=== PATIENT | female | born 1935 | race African-American/Black ===

== ENCOUNTER 2018-08-04 18:01 | Emergency (ER) | payer MEDICAID, MEDICARE ==
[~2018-08-04] VITALS: Ht 165.1 cm; Wt 84.0 kg
[~2018-08-04 18:01] MED LIST: APIX2.5T PO; DIGO250T4 PO; DILT240C3 PO; LORA0.5T2 PO; SEVE800T8 PO; ZOLP5TAB8 PO
[2018-08-04 18:45] LABS: BASOPHILS % 0.8 % (0.0-2.0); CHLORIDE 97 mEq/L (98-107); EOSINOPHILS % 4.6 % (0.0-5.0); HEMATOCRIT. 36.2 % (36.0-48.0); HEMOGLOBIN. 12.5 g/dL (12.0-16.0); LYMPHOCYTES % 29.7 % (20.0-50.0); MEAN CORPUSCULAR HEMOGLOBIN 29.8 pg (28.0-32.0); MEAN CORPUSCULAR VOLUME 86.5 fL (81.0-99.0); MEAN PLATELET VOLUME 8.6 fl (7.4-10.4); MONOCYTES % 11.6 % (2.0-8.0); NEUTROPHILS % 53.3 % (40.0-76.0); PLATELET 131 x1000/uL (130-400); RED BLOOD CELL COUNT 4.19 mill/uL (4.2-5.4); RED CELL DISTRIBUTION WIDTH 16.9 % (11.6-14.6)
[2018-08-04 18:48] LABS: INR 1.1; PROTHROMBIN TIME 11.4 sec (9.1-11.1)
[2018-08-04 21:09] VITALS: BP 178/77
== END 2018-08-04 21:09 | disposition home or self-care (01) ==
LOC: ER 18:01
DX: I12.0 Hypertensive chronic kidney disease with stage 5 chronic kidney disease or end stage renal disease (principal); N18.6 End stage renal disease; Z99.2 Dependence on renal dialysis; Z79.899 Other long term (current) drug therapy
CPT/HCPCS: 36415; 71045; 80053; 83880; 84484; 85025; 85610; 93005; 99285

== ENCOUNTER 2018-08-07 15:29 | Inpatient (IN) | payer MEDICARE, MEDICAID ==
[~2018-08-07] VITALS: Ht 121.9 cm; Wt 62.8 kg
[2018-08-07] MEDS ORDERED: CLON1PAT11 TD (15:40)
[2018-08-07] MEDS ORDERED: CLONIDINE 0.3MG TABLET PO ONE (18:45)
[2018-08-07] MEDS ORDERED: ACETAMINOPHEN 325MG TABLET PO ONE ×2 (18:45→20:30)
[2018-08-07 19:12] LABS: BASOPHILS % 0.9 % (0.0-2.0); EOSINOPHILS % 7.5 % (0.0-5.0); HEMATOCRIT. 33.8 % (36.0-48.0); HEMOGLOBIN. 11.5 g/dL (12.0-16.0); LYMPHOCYTES % 38.7 % (20.0-50.0); MEAN CORPUSCULAR HEMOGLOBIN 29.6 pg (28.0-32.0); MEAN CORPUSCULAR VOLUME 86.9 fL (81.0-99.0); MEAN PLATELET VOLUME 8.2 fl (7.4-10.4); MONOCYTES % 11.7 % (2.0-8.0); NEUTROPHILS % 41.2 % (40.0-76.0); PLATELET 168 x1000/uL (130-400); RED BLOOD CELL COUNT 3.89 mill/uL (4.2-5.4); RED CELL DISTRIBUTION WIDTH 16.5 % (11.6-14.6)
[2018-08-07 19:16] LABS: CHLORIDE 98 mEq/L (98-107)
[2018-08-07 19:39] LABS: DIGOXIN < 0.1 ng/mL (0.9-2.0)
[2018-08-07] MEDS ORDERED: HYDRALAZINE 20MG/ML VIAL IV ONE ×2 (20:15→21:00)
[2018-08-07] MEDS ORDERED: MORPHINE SULFATE 2 MG/ML CPJ (NOT FOR IM USE) IV ONE (20:15)
[2018-08-07] MEDS ORDERED: SODIUM CHLORIDE 0.9% 1000ML BAG (SEPSIS BOLUS) IV ONE (21:15)
[2018-08-07] MEDS ORDERED: LEVOFLOXACIN 750MG PREMIX 150 ML IV ONE (21:15)
[2018-08-07] MEDS ORDERED: NITROGLYCERIN 50MG PREMIX 250 ML IV ONE (21:15)
[2018-08-08] VITALS (80 sets, daily range): BP systolic 133–222; BP diastolic 60–134
[2018-08-08] MEDS ORDERED: CLONIDINE 0.2MG TABLET PO PRN (02:30)
[2018-08-08] MEDS: ZOLPIDEM TARTRATE 5MG TABLET PO PRN (03:08)
[2018-08-08 05:33] LABS: BASOPHILS % 1.1 % (0.0-2.0); EOSINOPHILS % 7.6 % (0.0-5.0); HEMOGLOBIN. 10.7 g/dL (12.0-16.0); LYMPHOCYTES % 32.9 % (20.0-50.0); MEAN CORPUSCULAR HEMOGLOBIN 29.9 pg (28.0-32.0); MEAN CORPUSCULAR VOLUME 86.9 fL (81.0-99.0); MEAN PLATELET VOLUME 8.4 fl (7.4-10.4); MONOCYTES % 12.4 % (2.0-8.0); PLATELET 157 x1000/uL (130-400); RED BLOOD CELL COUNT 3.57 mill/uL (4.2-5.4)
[2018-08-08] MEDS: NITROGLYCERIN 50MG PREMIX 250 ML IV PRN ×2 (06:22→14:14)
[2018-08-08] MEDS: SEVELAMER CARBONATE 800 MG TABLET PO SCH ×3 (08:20→18:20)
[2018-08-08] MEDS ORDERED: LISINOPRIL 20MG TABLET PO SCH (09:00)
[2018-08-08] MEDS: FOLIC ACID/VITAMIN B COMP W-C TABLET PO SCH (09:00)
[2018-08-08] MEDS ORDERED: HYDRALAZINE 20MG/ML VIAL IV PRN (09:00)
[2018-08-08] MEDS: APIXABAN 2.5 MG TABLET PO SCH ×2 (09:00→18:32)
[2018-08-08] MEDS ORDERED: LIDOCAINE HCL 1% 10 MG/ML 10ML VIAL ONE (09:12)
[2018-08-08] MEDS: CETIRIZINE 10MG TABLET PO SCH (13:22)
[2018-08-08] MEDS: DILTIAZEM HCL 240MG ER (24HR) PO SCH (13:22)
[2018-08-08] MEDS: HYDRALAZINE HCL 50MG TABLET PO SCH ×2 (13:22→21:04)
[2018-08-08] MEDS ORDERED: CLONIDINE 0.1MG TABLET PO SCH (14:00)
[2018-08-08] MEDS: LISINOPRIL 40MG TABLET PO SCH (14:11)
[2018-08-08] MEDS: CLONIDINE 0.2MG TABLET PO SCH ×2 (14:11→22:18)
[2018-08-08] MEDS: METOPROLOL TARTRATE 50MG TABLET PO SCH ×2 (14:12→21:05)
[2018-08-08] MEDS ORDERED: DIGOXIN 125MCG TABLET PO SCH (18:00)
[2018-08-08] MEDS: IPRATROPIUM/ALBUTEROL 0.5-3(2.5)MG/3ML NEB HHN SCH (20:38)
[2018-08-09] VITALS (77 sets, daily range): BP systolic 107–174; BP diastolic 51–83
[2018-08-09] MEDS: ZOLPIDEM TARTRATE 5MG TABLET PO PRN ×2 (02:13→22:16)
[2018-08-09] MEDS: IPRATROPIUM/ALBUTEROL 0.5-3(2.5)MG/3ML NEB HHN SCH ×3 (04:00→08:04)
[2018-08-09] MEDS: CLONIDINE 0.2MG TABLET PO SCH ×2 (05:39→14:07)
[2018-08-09] MEDS: NITROGLYCERIN 50MG PREMIX 250 ML IV PRN (06:51)
[2018-08-09 07:52] LABS: BASOPHILS % 0.9 % (0.0-2.0); EOSINOPHILS % 3.5 % (0.0-5.0); HEMATOCRIT. 30.4 % (36.0-48.0); HEMOGLOBIN. 10.5 g/dL (12.0-16.0); LYMPHOCYTES % 29.7 % (20.0-50.0); MEAN CORPUSCULAR HEMOGLOBIN 30.3 pg (28.0-32.0); MEAN CORPUSCULAR VOLUME 87.8 fL (81.0-99.0); MEAN PLATELET VOLUME 8.5 fl (7.4-10.4); MONOCYTES % 13.4 % (2.0-8.0); NEUTROPHILS % 52.5 % (40.0-76.0); PLATELET 170 x1000/uL (130-400); RED BLOOD CELL COUNT 3.46 mill/uL (4.2-5.4); RED CELL DISTRIBUTION WIDTH 17.3 % (11.6-14.6)
[2018-08-09] MEDS: SEVELAMER CARBONATE 800 MG TABLET PO SCH ×3 (08:20→17:11)
[2018-08-09] MEDS: FOLIC ACID/VITAMIN B COMP W-C TABLET PO SCH (08:25)
[2018-08-09] MEDS: APIXABAN 2.5 MG TABLET PO SCH ×2 (08:26→17:11)
[2018-08-09] MEDS: DILTIAZEM HCL 240MG ER (24HR) PO SCH (08:26)
[2018-08-09] MEDS: HYDRALAZINE HCL 50MG TABLET PO SCH (08:26)
[2018-08-09] MEDS: CETIRIZINE 10MG TABLET PO SCH (08:26)
[2018-08-09] MEDS: LISINOPRIL 40MG TABLET PO SCH (09:39)
[2018-08-09] MEDS: METOPROLOL TARTRATE 50MG TABLET PO SCH ×2 (09:40→21:24)
[2018-08-09] MEDS: TRAMADOL 50MG TABLET PO PRN ×2 (13:31→21:27)
[2018-08-09] MEDS ORDERED: HYDRALAZINE HCL 50MG TABLET PO SCH (17:00)
[2018-08-09] MEDS: HYDRALAZINE HCL 100MG TABLET PO SCH (17:11)
[2018-08-09] MEDS ORDERED: MORPHINE SULFATE 4 MG/ML CPJ (NOT FOR IM USE) IV PRN (19:00)
[2018-08-09] MEDS ORDERED: DILTIAZEM HCL 180MG CAPSULE CD 24HR PO SCH (21:00)
[2018-08-09] MEDS: CLONIDINE 0.3MG TABLET PO SCH (22:16)
[2018-08-10] VITALS (53 sets, daily range): BP systolic 80–186; BP diastolic 45–92
[2018-08-10] MEDS: CLONIDINE 0.3MG TABLET PO SCH ×3 (05:52→21:20)
[2018-08-10 06:24] LABS: BASOPHILS % 0.4 % (0.0-2.0); EOSINOPHILS % 5.5 % (0.0-5.0); HEMATOCRIT. 30.3 % (36.0-48.0); HEMOGLOBIN. 10.4 g/dL (12.0-16.0); LYMPHOCYTES % 31.1 % (20.0-50.0); MEAN CORPUSCULAR HEMOGLOBIN 30.1 pg (28.0-32.0); MEAN CORPUSCULAR VOLUME 87.9 fL (81.0-99.0); MEAN PLATELET VOLUME 8.5 fl (7.4-10.4); MONOCYTES % 11.6 % (2.0-8.0); NEUTROPHILS % 51.4 % (40.0-76.0); PLATELET 173 x1000/uL (130-400); RED BLOOD CELL COUNT 3.44 mill/uL (4.2-5.4); RED CELL DISTRIBUTION WIDTH 17.5 % (11.6-14.6)
[2018-08-10] MEDS: IPRATROPIUM/ALBUTEROL 0.5-3(2.5)MG/3ML NEB HHN PRN (07:12)
[2018-08-10] MEDS: SEVELAMER CARBONATE 800 MG TABLET PO SCH ×4 (08:20→17:44)
[2018-08-10] MEDS ORDERED: ONDANSETRON HCL 4MG/2ML INJ IV PRN (09:00)
[2018-08-10] MEDS: APIXABAN 2.5 MG TABLET PO SCH ×2 (09:33→17:43)
[2018-08-10] MEDS: CETIRIZINE 10MG TABLET PO SCH (09:33)
[2018-08-10] MEDS: LISINOPRIL 40MG TABLET PO SCH (09:34)
[2018-08-10] MEDS: DILTIAZEM HCL 240MG ER (24HR) PO SCH (09:34)
[2018-08-10] MEDS: METOPROLOL TARTRATE 50MG TABLET PO SCH ×2 (09:34→21:19)
[2018-08-10] MEDS: FOLIC ACID/VITAMIN B COMP W-C TABLET PO SCH (09:34)
[2018-08-10] MEDS: HYDRALAZINE HCL 100MG TABLET PO SCH ×3 (09:35→17:44)
[2018-08-10] MEDS: TRAMADOL 50MG TABLET PO PRN (17:43)
[2018-08-11] VITALS: BP 131/54
[2018-08-11 04:00] VITALS: BP 138/63
[2018-08-11] MEDS: IPRATROPIUM/ALBUTEROL 0.5-3(2.5)MG/3ML NEB HHN PRN (04:30)
[2018-08-11] MEDS: CLONIDINE 0.3MG TABLET PO SCH ×2 (06:10→17:35)
[2018-08-11] MEDS: TRAMADOL 50MG TABLET PO PRN (06:10)
[2018-08-11 07:30] LABS: BASOPHILS % 0.8 % (0.0-2.0); EOSINOPHILS % 3.8 % (0.0-5.0); HEMOGLOBIN. 11.5 g/dL (12.0-16.0); LYMPHOCYTES % 31.9 % (20.0-50.0); MEAN CORPUSCULAR HEMOGLOBIN 30.5 pg (28.0-32.0); MEAN CORPUSCULAR VOLUME 87.8 fL (81.0-99.0); MEAN PLATELET VOLUME 8.2 fl (7.4-10.4); MONOCYTES % 14.7 % (2.0-8.0); NEUTROPHILS % 48.8 % (40.0-76.0); PLATELET 164 x1000/uL (130-400); RED BLOOD CELL COUNT 3.77 mill/uL (4.2-5.4); RED CELL DISTRIBUTION WIDTH 17.9 % (11.6-14.6)
[2018-08-11 08:00] VITALS: BP 157/64
[2018-08-11] MEDS: SEVELAMER CARBONATE 800 MG TABLET PO SCH ×3 (08:10→17:04)
[2018-08-11] MEDS: LISINOPRIL 40MG TABLET PO SCH (08:20)
[2018-08-11] MEDS: APIXABAN 2.5 MG TABLET PO SCH ×2 (08:20→17:35)
[2018-08-11] MEDS: CETIRIZINE 10MG TABLET PO SCH (08:20)
[2018-08-11] MEDS: FOLIC ACID/VITAMIN B COMP W-C TABLET PO SCH (08:20)
[2018-08-11] MEDS: METOPROLOL TARTRATE 50MG TABLET PO SCH (08:24)
[2018-08-11] MEDS: DILTIAZEM HCL 240MG ER (24HR) PO SCH (08:25)
[2018-08-11] MEDS: HYDRALAZINE HCL 100MG TABLET PO SCH ×3 (08:27→17:37)
[2018-08-11 12:00] VITALS: BP 148/65
[2018-08-11 16:00] VITALS: BP 129/64
[2018-08-11 16:10] VITALS: BP 157/64
== END 2018-08-11 19:07 | disposition home or self-care (01) | DRG 199 ==
LOC: ER 16:17 → CVICU 17:17 → EDBEDREQ 08-08 00:30 → ENRESERV 08-08 00:34 → 7WST 08-10 16:01
PROVIDERS: ADMIT Internal Medicine; ATTEND Internal Medicine
PROC: B54MZZA Ultrasonography of Right Upper Extremity Veins, Guidance (ICD-10-PCS; principal; 2018-08-08)
PROC: 05HY33Z Insertion of Infusion Device into Upper Vein, Percutaneous Approach (ICD-10-PCS; 2018-08-08)
PROC: 5A1D70Z Performance of Urinary Filtration, Intermittent, Less than 6 Hours Per Day (ICD-10-PCS; 2018-08-08)
PROC: 5A1D70Z Performance of Urinary Filtration, Intermittent, Less than 6 Hours Per Day (ICD-10-PCS; 2018-08-10)
DX: I16.0 Hypertensive urgency (principal); I50.33 Acute on chronic diastolic (congestive) heart failure; N18.6 End stage renal disease; I48.91 Unspecified atrial fibrillation; E87.1 Hypo-osmolality and hyponatremia; D63.8 Anemia in other chronic diseases classified elsewhere; I13.2 Hypertensive heart and chronic kidney disease with heart failure and with stage 5 chronic kidney disease, or end stage renal disease; I16.1 Hypertensive emergency; I25.10 Atherosclerotic heart disease of native coronary artery without angina pectoris; Z79.01 Long term (current) use of anticoagulants; Z99.2 Dependence on renal dialysis; Z95.0 Presence of cardiac pacemaker; Z79.899 Other long term (current) drug therapy
CPT/HCPCS: 36415; 36569; 70450; 71045; 76937; 80048; 80061; 80162; 82040; 83605; 83880; 84443; 84484; 85025; 87040; 93005; 93306; 93970; 94640; 96365; 96375; 97116; 97162; 97530; 99291; C1725; C1769; J0360; J1956; J2270; J2405; J3490; J7030; J7620

== ENCOUNTER 2018-08-16 18:20 | Inpatient (IN) | payer MEDICARE, MEDICAID ==
[~2018-08-16] VITALS: Ht 167.6 cm; Wt 73.9 kg
[2018-08-16] MEDS ORDERED: MORPHINE SULFATE 4 MG/ML CPJ (NOT FOR IM USE) IV STA (18:53)
[2018-08-16] MEDS ORDERED: ONDANSETRON HCL 4MG/2ML INJ IV STA (18:53)
[2018-08-16] MEDS ORDERED: CLONIDINE 0.2MG TABLET PO ONE (19:00)
[2018-08-16] MEDS ORDERED: NITROGLYCERIN OINT 1GM/INCH UDPKT TD ONE (19:00)
[2018-08-16 19:35] LABS: BASOPHILS % 0.6 % (0.0-2.0); EOSINOPHILS % 3.1 % (0.0-5.0); HEMATOCRIT. 37.4 % (36.0-48.0); HEMOGLOBIN. 12.6 g/dL (12.0-16.0); LYMPHOCYTES % 29.6 % (20.0-50.0); MEAN CORPUSCULAR HEMOGLOBIN 28.8 pg (28.0-32.0); MEAN CORPUSCULAR VOLUME 85.8 fL (81.0-99.0); MEAN PLATELET VOLUME 8.6 fl (7.4-10.4); MONOCYTES % 11.6 % (2.0-8.0); NEUTROPHILS % 55.1 % (40.0-76.0); PLATELET 255 x1000/uL (130-400); RED BLOOD CELL COUNT 4.35 mill/uL (4.2-5.4); RED CELL DISTRIBUTION WIDTH 17.8 % (11.6-14.6)
[2018-08-16 19:40] LABS: CHLORIDE 94 mEq/L (98-107)
[2018-08-16 19:44] LABS: ETHANOL BLOOD < 10 mg/dL; INR 1.1; PARTIAL THROMBOPLASTIN TIME 37.5 sec (23.4-31.0); PROTHROMBIN TIME 11.4 sec (9.1-11.1)
[2018-08-16] MEDS ORDERED: ONDANSETRON 4MG ODT PO ONE (20:00)
[2018-08-16] MEDS ORDERED: MORPHINE SULFATE 10 MG/ML CPJ IM ONE (20:00)
[2018-08-16] MEDS ORDERED: NITROGLYCERIN 0.4MG TABLET SL SL PRN (22:00)
[2018-08-16] MEDS ORDERED: MAGNESIUM/ALUMINUM HYDROXIDE/SIMETHICONE 30ML UDC PO PRN (22:00)
[2018-08-16] MEDS ORDERED: NA PHOS,M-B/NA PHOS,DI-BA ENEMA 118ML PR PRN (22:00)
[2018-08-16] MEDS ORDERED: TRAMADOL 50MG TABLET PO PRN (22:00)
[2018-08-16] MEDS ORDERED: GUAIFENESIN 200MG/10ML SUGAR FREE UDC PO PRN (22:00)
[2018-08-16] MEDS ORDERED: ACETAMINOPHEN 325MG TABLET PO PRN (22:00)
[2018-08-16] MEDS ORDERED: ONDANSETRON HCL 4MG/2ML INJ IV PRN (22:00)
[2018-08-16] MEDS ORDERED: DIPHENHYDRAMINE 50MG/ML VIAL IV PRN (22:00)
[2018-08-16] MEDS ORDERED: DOCUSATE SODIUM 100MG CAPSULE PO PRN (22:00)
[2018-08-16] MEDS ORDERED: LORAZEPAM 0.5MG TABLET PO PRN (22:00)
[2018-08-16 22:34] LABS: LDL CHOLESTEROL 72 mg/dL (5-100)
[2018-08-16 22:35] LABS: HDL CHOLESTEROL 58 mg/dL (40-59)
[2018-08-16] MEDS: CLONIDINE 0.1MG TABLET PO PRN (22:35)
[2018-08-16 23:07] LABS: DIGOXIN < 0.1 ng/mL (0.9-2.0)
[2018-08-17] VITALS (8 sets, daily range): BP systolic 135–213; BP diastolic 50–89
[2018-08-17 01:21] LABS: CREATINE KINASE 67 IU/L (26-192); CREATINE KINASE MB FRACTION 1.6 ng/mL (0.5-3.6)
[2018-08-17] MEDS: ZOLPIDEM TARTRATE 5MG TABLET PO PRN (02:17)
[2018-08-17] MEDS: CLONIDINE 0.1MG TABLET PO PRN (02:34)
[2018-08-17] MEDS: HYDRALAZINE HCL 50MG TABLET PO SCH ×3 (05:36→22:03)
[2018-08-17] MEDS: SEVELAMER CARBONATE 800 MG TABLET PO SCH ×3 (08:04→17:42)
[2018-08-17] MEDS: FOLIC ACID/VITAMIN B COMP W-C TABLET PO SCH (08:05)
[2018-08-17] MEDS: ASPIRIN 325MG EC TABLET PO SCH (08:05)
[2018-08-17] MEDS: AMLODIPINE 10MG TABLET PO SCH (08:07)
[2018-08-17] MEDS: METOPROLOL TARTRATE 25MG TABLET PO SCH ×2 (08:07→20:45)
[2018-08-17] MEDS: APIXABAN 2.5 MG TABLET PO SCH ×2 (08:08→20:45)
[2018-08-17] MEDS ORDERED: LIDOCAINE HCL 1% 20ML VIAL (Pyxis) INJ ONE (08:54)
[2018-08-17 14:03] LABS: CREATINE KINASE 59 IU/L (26-192)
[2018-08-17 14:04] LABS: CREATINE KINASE MB FRACTION 1.8 ng/mL (0.5-3.6)
[2018-08-17] MEDS: IPRATROPIUM/ALBUTEROL 0.5-3(2.5)MG/3ML NEB INH PRN (20:26)
[2018-08-18] VITALS (7 sets, daily range): BP systolic 104–163; BP diastolic 53–69
[2018-08-18] MEDS: IPRATROPIUM/ALBUTEROL 0.5-3(2.5)MG/3ML NEB INH PRN ×5 (01:34→15:41)
[2018-08-18] MEDS: HYDRALAZINE HCL 50MG TABLET PO SCH ×3 (06:19→21:25)
[2018-08-18 07:15] LABS: HEMATOCRIT. 29.8 % (36.0-48.0); HEMOGLOBIN. 10.3 g/dL (12.0-16.0); MEAN CORPUSCULAR HEMOGLOBIN 29.7 pg (28.0-32.0); MEAN CORPUSCULAR VOLUME 85.5 fL (81.0-99.0); MEAN PLATELET VOLUME 8.8 fl (7.4-10.4); PLATELET 231 x1000/uL (130-400); RED BLOOD CELL COUNT 3.48 mill/uL (4.2-5.4); RED CELL DISTRIBUTION WIDTH 17.3 % (11.6-14.6)
[2018-08-18] MEDS: SEVELAMER CARBONATE 800 MG TABLET PO SCH ×3 (08:55→18:09)
[2018-08-18] MEDS: FOLIC ACID/VITAMIN B COMP W-C TABLET PO SCH (08:55)
[2018-08-18] MEDS: ASPIRIN 325MG EC TABLET PO SCH ×2 (08:55→08:58)
[2018-08-18] MEDS: APIXABAN 2.5 MG TABLET PO SCH (08:56)
[2018-08-18] MEDS: AMLODIPINE 10MG TABLET PO SCH ×2 (08:58→12:13)
[2018-08-18] MEDS: METOPROLOL TARTRATE 25MG TABLET PO SCH ×2 (08:58→21:25)
[2018-08-18 12:04] LABS: PLATELET ESTIMATE NORMAL
[2018-08-18] MEDS: LOSARTAN POTASSIUM 50 MG TABLET PO SCH ×2 (15:44→21:24)
[2018-08-18] MEDS: CLONIDINE 0.1MG TABLET PO PRN (15:45)
[2018-08-18] MEDS ORDERED: AMLODIPINE 5MG TABLET PO SCH (21:00)
[2018-08-18] MEDS: ZOLPIDEM TARTRATE 5MG TABLET PO PRN (21:38)
[2018-08-19] VITALS: BP 145/55
[2018-08-19] MEDS: IPRATROPIUM/ALBUTEROL 0.5-3(2.5)MG/3ML NEB INH PRN ×4 (02:36→21:11)
[2018-08-19 04:00] VITALS: BP_SYST 151; BP_SYST 169; BP_DIAS 62; BP_DIAS 67
[2018-08-19] MEDS: HYDRALAZINE HCL 50MG TABLET PO SCH (06:19)
[2018-08-19 08:00] VITALS: BP 168/69
[2018-08-19] MEDS: AMLODIPINE 10MG TABLET PO SCH (08:31)
[2018-08-19] MEDS: SEVELAMER CARBONATE 800 MG TABLET PO SCH ×3 (08:31→17:57)
[2018-08-19] MEDS: LOSARTAN POTASSIUM 50 MG TABLET PO SCH (08:31)
[2018-08-19] MEDS: ASPIRIN 325MG EC TABLET PO SCH (08:32)
[2018-08-19] MEDS: FOLIC ACID/VITAMIN B COMP W-C TABLET PO SCH (08:32)
[2018-08-19] MEDS: METOPROLOL TARTRATE 25MG TABLET PO SCH (08:32)
[2018-08-19 12:00] VITALS: BP 166/65
[2018-08-19] MEDS ORDERED: ASPIRIN 325MG EC TABLET PO SCH (13:30)
[2018-08-19] MEDS ORDERED: CLON0.3T PO (13:46)
[2018-08-19] MEDS ORDERED: METO-539 MT (13:46)
[2018-08-19] MEDS ORDERED: LISI40TA4 MT (13:46)
[2018-08-19] MEDS ORDERED: HYDR100T26 MT (13:46)
[2018-08-19] MEDS ORDERED: ASPIRIN 81MG EC TABLET PO SCH (13:47)
[2018-08-19] MEDS: HYDRALAZINE HCL 100MG TABLET PO SCH ×2 (13:53→22:57)
[2018-08-19] MEDS: CLONIDINE 0.1MG TABLET PO SCH ×2 (13:54→21:26)
[2018-08-19] MEDS ORDERED: DILTIAZEM HCL 60MG TABLET PO SCH (14:00)
[2018-08-19 16:00] VITALS: BP 169/60
[2018-08-19] MEDS: APIXABAN 2.5 MG TABLET PO SCH ×2 (17:00→17:57)
[2018-08-19 20:00] VITALS: BP 158/55
[2018-08-19] MEDS: METOPROLOL TARTRATE 50MG TABLET PO SCH (21:25)
[2018-08-19] MEDS: LISINOPRIL 20MG TABLET PO SCH (21:26)
[2018-08-20] VITALS: BP 158/55
[2018-08-20] MEDS: IPRATROPIUM/ALBUTEROL 0.5-3(2.5)MG/3ML NEB INH PRN ×4 (01:37→20:27)
[2018-08-20 04:00] VITALS: BP 173/73
[2018-08-20] MEDS: CLONIDINE 0.1MG TABLET PO SCH ×3 (06:47→23:06)
[2018-08-20] MEDS: HYDRALAZINE HCL 100MG TABLET PO SCH ×3 (06:47→23:06)
[2018-08-20] MEDS: METOPROLOL TARTRATE 50MG TABLET PO SCH ×2 (09:00→21:45)
[2018-08-20] MEDS: AMLODIPINE 10MG TABLET PO SCH (09:00)
[2018-08-20 09:36] LABS: BASOPHILS % 0.9 % (0.0-2.0); EOSINOPHILS % 13.6 % (0.0-5.0); HEMATOCRIT. 32.1 % (36.0-48.0); HEMOGLOBIN. 10.8 g/dL (12.0-16.0); LYMPHOCYTES % 33.5 % (20.0-50.0); MEAN CORPUSCULAR HEMOGLOBIN 29.2 pg (28.0-32.0); MEAN CORPUSCULAR VOLUME 86.6 fL (81.0-99.0); MEAN PLATELET VOLUME 8.6 fl (7.4-10.4); MONOCYTES % 12.1 % (2.0-8.0); NEUTROPHILS % 39.9 % (40.0-76.0); PLATELET 259 x1000/uL (130-400); RED CELL DISTRIBUTION WIDTH 17.8 % (11.6-14.6)
[2018-08-20] MEDS: FOLIC ACID/VITAMIN B COMP W-C TABLET PO SCH (10:36)
[2018-08-20] MEDS: ASPIRIN 81MG EC TABLET PO SCH (10:37)
[2018-08-20] MEDS: SEVELAMER CARBONATE 800 MG TABLET PO SCH ×4 (10:37→18:59)
[2018-08-20] MEDS: LISINOPRIL 20MG TABLET PO SCH ×2 (10:39→21:46)
[2018-08-20] MEDS: APIXABAN 2.5 MG TABLET PO SCH ×2 (11:44→18:46)
[2018-08-20 12:00] VITALS: BP 150/61
[2018-08-20] MEDS ORDERED: LACTULOSE 20G/30ML UDC PO NR (12:00)
[2018-08-20 16:00] VITALS: BP 130/70
[2018-08-20 20:00] VITALS: BP 119/65
[2018-08-20] MEDS: ZOLPIDEM TARTRATE 5MG TABLET PO PRN (21:45)
[2018-08-21] VITALS: BP 155/55
[2018-08-21] MEDS: IPRATROPIUM/ALBUTEROL 0.5-3(2.5)MG/3ML NEB INH PRN ×4 (00:02→13:24)
[2018-08-21 04:00] VITALS: BP_SYST 169; BP_DIAS 60; BP_DIAS 90
[2018-08-21] MEDS: CLONIDINE 0.1MG TABLET PO SCH (06:17)
[2018-08-21] MEDS: HYDRALAZINE HCL 100MG TABLET PO SCH ×2 (06:18→15:03)
[2018-08-21 08:09] VITALS: BP 164/66
[2018-08-21] MEDS: METOPROLOL TARTRATE 50MG TABLET PO SCH (09:00)
[2018-08-21] MEDS: APIXABAN 2.5 MG TABLET PO SCH (09:00)
[2018-08-21] MEDS: LISINOPRIL 20MG TABLET PO SCH (09:00)
[2018-08-21] MEDS: ASPIRIN 81MG EC TABLET PO SCH (09:00)
[2018-08-21] MEDS: AMLODIPINE 10MG TABLET PO SCH (09:00)
[2018-08-21] MEDS: FOLIC ACID/VITAMIN B COMP W-C TABLET PO SCH (09:20)
[2018-08-21 12:04] VITALS: BP 136/57
[2018-08-21 12:15] VITALS: BP 136/57
[2018-08-21] MEDS: SEVELAMER CARBONATE 800 MG TABLET PO SCH (13:27)
[2018-08-21] MEDS ORDERED: CLONIDINE 0.2MG TABLET PO SCH (14:00)
[2018-08-21] MEDS ORDERED: CLONIDINE 0.2MG TABLET PO PRN (15:00)
== END 2018-08-21 15:45 | disposition home or self-care (01) | DRG 133 ==
LOC: ER 18:20 → 6WST 21:28 → EDBEDREQ 21:34 → SUPCPDRO 21:50 → ENRESERV 22:47
PROVIDERS: ADMIT Internal Medicine; ATTEND Internal Medicine
PROC: 02HV33Z Insertion of Infusion Device into Superior Vena Cava, Percutaneous Approach (ICD-10-PCS; principal; 2018-08-17)
PROC: B5181ZA Fluoroscopy of Superior Vena Cava using Low Osmolar Contrast, Guidance (ICD-10-PCS; 2018-08-17)
PROC: B548ZZA Ultrasonography of Superior Vena Cava, Guidance (ICD-10-PCS; 2018-08-17)
PROC: 5A1D70Z Performance of Urinary Filtration, Intermittent, Less than 6 Hours Per Day (ICD-10-PCS; 2018-08-18)
PROC: 5A1D70Z Performance of Urinary Filtration, Intermittent, Less than 6 Hours Per Day (ICD-10-PCS; 2018-08-20)
PROC: 5A1D70Z Performance of Urinary Filtration, Intermittent, Less than 6 Hours Per Day (ICD-10-PCS; 2018-08-21)
DX: J96.00 Acute respiratory failure, unspecified whether with hypoxia or hypercapnia (principal); I13.2 Hypertensive heart and chronic kidney disease with heart failure and with stage 5 chronic kidney disease, or end stage renal disease; I48.0 Paroxysmal atrial fibrillation; I49.5 Sick sinus syndrome; N18.6 End stage renal disease; E87.1 Hypo-osmolality and hyponatremia; I50.33 Acute on chronic diastolic (congestive) heart failure; D63.1 Anemia in chronic kidney disease; I16.0 Hypertensive urgency; I25.10 Atherosclerotic heart disease of native coronary artery without angina pectoris; J45.909 Unspecified asthma, uncomplicated; Z99.2 Dependence on renal dialysis; Z79.01 Long term (current) use of anticoagulants; Z95.0 Presence of cardiac pacemaker; Z79.899 Other long term (current) drug therapy; Z82.49 Family history of ischemic heart disease and other diseases of the circulatory system
CPT/HCPCS: 36415; 36569; 70450; 71045; 71046; 76770; 76937; 77001; 80048; 80053; 80061; 80162; 82550; 82553; 82962; 83036; 83880; 84443; 84484; 85025; 85610; 85730; 93005; 93970; 94640; 96372; 97116; 97162; 97166; 97530; 99285; C1725; C1769; G0482; J2270; J2405; J3490; J7030; J7620; Q0162

== ENCOUNTER 2018-11-01 10:00 | Emergency (ER) | payer MEDICARE, MEDICAID ==
[~2018-11-01] VITALS: Ht 167.6 cm; Wt 66.5 kg
[~2018-11-01 10:00] MED LIST changes: +CLON0.3T PO; -DIGO250T4 PO; -DILT240C3 PO; +HYDR100T26 MT; +LISI40TA4 MT; +METO-539 MT
[2018-11-01] MEDS ORDERED: COLCHICINE 0.6MG TABLET PO ONE (12:30)
[2018-11-01 13:21] VITALS: BP 151/75
== END 2018-11-01 13:32 | disposition left against medical advice (07) ==
LOC: ER 10:00
DX: M10.9 Gout, unspecified (principal); I10 Essential (primary) hypertension; Z95.0 Presence of cardiac pacemaker; Z79.899 Other long term (current) drug therapy
CPT/HCPCS: 73030; 73110; 93971; 99284

== ENCOUNTER 2019-02-26 07:11 | Inpatient (IN) | payer MEDICARE, MEDICAID ==
[~2019-02-26] VITALS: Ht 167.6 cm; Wt 64.4 kg
[2019-02-26] MEDS ORDERED: HYDROCODONE/ACETAMINOPHEN 5/325MG TABLET PO STA (08:03)
[2019-02-26 08:49] LABS: BASOPHILS % 1.3 % (0.0-2.0); EOSINOPHILS % 7.2 % (0.0-5.0); HEMATOCRIT. 32.8 % (36.0-48.0); LYMPHOCYTES % 37.2 % (20.0-50.0); MEAN CORPUSCULAR HEMOGLOBIN 29.9 pg (28.0-32.0); MEAN CORPUSCULAR VOLUME 88.9 fL (81.0-99.0); MEAN PLATELET VOLUME 8.8 fl (7.4-10.4); MONOCYTES % 10.3 % (2.0-8.0); PLATELET 227 x1000/uL (130-400); RED BLOOD CELL COUNT 3.69 mill/uL (4.2-5.4); RED CELL DISTRIBUTION WIDTH 18.5 % (11.6-14.6)
[2019-02-26 08:52] LABS: CHLORIDE 99 mEq/L (98-107)
[2019-02-26] MEDS ORDERED: AMLO10TA80 PO (09:45)
[2019-02-26] MEDS ORDERED: DILT90TA2 PO (09:46)
[2019-02-26] MEDS ORDERED: ALLO100T PO (09:49)
[2019-02-26] MEDS ORDERED: CLON0.2T PO (09:49)
[2019-02-26] MEDS ORDERED: FOLI1TAB87 PO (09:51)
[2019-02-26 09:53] LABS: CLARITY URINE CLEAR (CLEAR); COLOR URINE YELLOW (YELLOW); KETONES URINE NEGATIVE (NEGATIVE); LEUKOCYTE ESTERASE URINE TRACE (NEGATIVE); NITRITE URINE NEGATIVE (NEGATIVE); OCCULT BLOOD URINE NEGATIVE (NEGATIVE); PH URINE >=9.0 (4.5-8.0); PROTEIN URINE 2+ (NEGATIVE); SPECIFIC GRAVITY URINE 1.008 (1.005-1.030); UROBILINOGEN URINE 0.2 E.U./dL (0.2-1.0)
[2019-02-26] MEDS ORDERED: CEFTRIAXONE 1 G PREMIX 50 ML IV ONE (11:00)
[2019-02-26] MEDS ORDERED: SODIUM CHLORIDE 0.45% 1,000 ML IV SCH (13:06)
[2019-02-26] MEDS ORDERED: ENOXAPARIN 40MG/0.4ML SYR SUBCUT SCH (13:15)
[2019-02-26] MEDS ORDERED: LACTULOSE 20G/30ML UDC PO ONE (13:15)
[2019-02-26] MEDS ORDERED: LEVOFLOXACIN 500MG PREMIX 100 ML IV SCH (13:15)
[2019-02-26] MEDS ORDERED: SEVELAMER CARBONATE 800 MG TABLET PO SCH (17:00)
[2019-02-26] MEDS ORDERED: APIXABAN 2.5 MG TABLET PO SCH (17:00)
[2019-02-26] MEDS: HYDROMORPHONE HCL/PF 2MG/ML CPJ IV PRN (19:08)
[2019-02-26 22:30] VITALS: BP 158/54
[2019-02-26] MEDS ORDERED: LACTULOSE 20G/30ML UDC PO NR (23:13)
[2019-02-27 00:26] VITALS: BP 156/59
[2019-02-27] MEDS ORDERED: LEVOFLOXACIN 500MG PREMIX 100 ML IV SCH (01:00)
[2019-02-27] MEDS: SODIUM CHLORIDE 0.45% 1,000 ML IV SCH (01:43)
[2019-02-27 04:41] VITALS: BP 158/61
[2019-02-27] MEDS: IPRATROPIUM/ALBUTEROL 0.5-3(2.5)MG/3ML NEB HHN PRN ×2 (04:59→11:05)
[2019-02-27 08:00] VITALS: BP 148/57
[2019-02-27] MEDS: FOLIC ACID/VITAMIN B COMP W-C TABLET PO SCH (08:07)
[2019-02-27] MEDS: AMIODARONE HCL 200 MG TABLET PO SCH (08:07)
[2019-02-27] MEDS: APIXABAN 2.5 MG TABLET PO SCH ×2 (08:07→18:55)
[2019-02-27] MEDS: METOPROLOL TARTRATE 25MG TABLET PO SCH ×2 (08:08→21:11)
[2019-02-27] MEDS: SEVELAMER CARBONATE 800 MG TABLET PO SCH ×4 (08:08→18:55)
[2019-02-27] MEDS ORDERED: NA PHOS,M-B/NA PHOS,DI-BA ENEMA 118ML PR SCH (08:45)
[2019-02-27] MEDS ORDERED: BISACODYL 5MG TABLET PO NR (08:45)
[2019-02-27 09:01] LABS: HEMATOCRIT. 25.4 % (36.0-48.0); HEMOGLOBIN. 8.7 g/dL (12.0-16.0); MEAN CORPUSCULAR HEMOGLOBIN 30.2 pg (28.0-32.0); MEAN CORPUSCULAR VOLUME 88.5 fL (81.0-99.0); MEAN PLATELET VOLUME 8.9 fl (7.4-10.4); PLATELET 198 x1000/uL (130-400); RED BLOOD CELL COUNT 2.87 mill/uL (4.2-5.4); RED CELL DISTRIBUTION WIDTH 18.7 % (11.6-14.6)
[2019-02-27 09:27] LABS: CHLORIDE 101 mEq/L (98-107)
[2019-02-27 09:36] LABS: LDL CHOLESTEROL 46 mg/dL (5-100)
[2019-02-27 09:37] LABS: HDL CHOLESTEROL 92 mg/dL (40-59)
[2019-02-27 12:00] VITALS: BP 168/66
[2019-02-27 12:03] LABS: PLATELET ESTIMATE NORMAL
[2019-02-27] MEDS: CLONIDINE 0.1MG TABLET PO SCH ×2 (13:28→21:10)
[2019-02-27 16:00] VITALS: BP 151/66
[2019-02-27 20:37] VITALS: BP 164/69
[2019-02-27] MEDS: HYDROMORPHONE HCL/PF 2MG/ML CPJ IV PRN (21:35)
[2019-02-28] MEDS: CLONIDINE 0.1MG TABLET PO PRN (00:19)
[2019-02-28] MEDS: SODIUM CHLORIDE 0.45% 1,000 ML IV SCH (00:22)
[2019-02-28 00:39] VITALS: BP 166/66
[2019-02-28] MEDS: ACETAMINOPHEN 325MG TABLET PO PRN (02:45)
[2019-02-28 04:00] VITALS: BP 159/60
[2019-02-28] MEDS: HYDROMORPHONE HCL/PF 2MG/ML CPJ IV PRN ×2 (04:31→16:05)
[2019-02-28] MEDS: CLONIDINE 0.1MG TABLET PO SCH (05:41)
[2019-02-28 08:00] VITALS: BP 162/66
[2019-02-28] MEDS: ONDANSETRON HCL 4MG/2ML INJ IV PRN ×2 (08:49→18:23)
[2019-02-28] MEDS: IPRATROPIUM/ALBUTEROL 0.5-3(2.5)MG/3ML NEB HHN PRN ×3 (08:51→22:11)
[2019-02-28] MEDS: SEVELAMER CARBONATE 800 MG TABLET PO SCH ×2 (09:00→18:24)
[2019-02-28] MEDS: APIXABAN 2.5 MG TABLET PO SCH ×2 (09:00→18:23)
[2019-02-28] MEDS: METOPROLOL TARTRATE 25MG TABLET PO SCH (09:01)
[2019-02-28] MEDS: FOLIC ACID/VITAMIN B COMP W-C TABLET PO SCH (09:10)
[2019-02-28] MEDS: AMIODARONE HCL 200 MG TABLET PO SCH (09:10)
[2019-02-28 09:15] LABS: BASOPHILS % 1.1 % (0.0-2.0); EOSINOPHILS % 11.8 % (0.0-5.0); HEMATOCRIT. 26.9 % (36.0-48.0); HEMOGLOBIN. 9.2 g/dL (12.0-16.0); LYMPHOCYTES % 29.9 % (20.0-50.0); MEAN CORPUSCULAR HEMOGLOBIN 30.7 pg (28.0-32.0); MEAN CORPUSCULAR VOLUME 89.4 fL (81.0-99.0); MONOCYTES % 9.9 % (2.0-8.0); NEUTROPHILS % 47.3 % (40.0-76.0); PLATELET 218 x1000/uL (130-400); RED BLOOD CELL COUNT 3.01 mill/uL (4.2-5.4); RED CELL DISTRIBUTION WIDTH 18.5 % (11.6-14.6)
[2019-02-28 11:22] LABS: TOTAL IRON BINDING CAPACITY 238 ug/dL (250-450)
[2019-02-28] MEDS: METOCLOPRAMIDE HCL 10MG/2ML VIAL IV SCH ×2 (12:06→18:23)
[2019-02-28 12:48] VITALS: BP 154/68
[2019-02-28] MEDS: CLONIDINE 0.2MG TABLET PO SCH ×2 (14:00→21:14)
[2019-02-28] MEDS: HYDRALAZINE HCL 100MG TABLET PO SCH ×2 (14:00→21:14)
[2019-02-28] MEDS: LISINOPRIL 40MG TABLET PO SCH (16:09)
[2019-02-28] MEDS: AMLODIPINE 10MG TABLET PO SCH (16:09)
[2019-02-28 16:57] VITALS: BP 154/59
[2019-02-28 20:00] VITALS: BP 169/62
[2019-02-28] MEDS ORDERED: LEVOFLOXACIN 250MG PREMIX 50 ML IV SCH (20:00)
[2019-02-28] MEDS: EPOETIN ALFA 10000UNITS/ML VIAL SUBCUT SCH (21:33)
[2019-03-01] VITALS: BP 90/52
[2019-03-01] MEDS: SODIUM CHLORIDE 0.45% 1,000 ML IV SCH (00:10)
[2019-03-01] MEDS: METOCLOPRAMIDE HCL 10MG/2ML VIAL IV SCH ×4 (00:10→18:28)
[2019-03-01] MEDS: IPRATROPIUM/ALBUTEROL 0.5-3(2.5)MG/3ML NEB HHN PRN ×3 (01:51→07:59)
[2019-03-01 04:00] VITALS: BP 147/57
[2019-03-01] MEDS: HYDROMORPHONE HCL/PF 2MG/ML CPJ IV PRN ×2 (04:32→21:34)
[2019-03-01] MEDS: CLONIDINE 0.2MG TABLET PO SCH ×3 (05:33→21:34)
[2019-03-01] MEDS: HYDRALAZINE HCL 100MG TABLET PO SCH ×3 (05:33→21:34)
[2019-03-01 07:08] LABS: BASOPHILS % 1.2 % (0.0-2.0); HEMATOCRIT. 23.4 % (36.0-48.0); LYMPHOCYTES % 25.3 % (20.0-50.0); MEAN CORPUSCULAR HEMOGLOBIN 30.8 pg (28.0-32.0); MEAN CORPUSCULAR VOLUME 89.8 fL (81.0-99.0); MEAN PLATELET VOLUME 8.9 fl (7.4-10.4); MONOCYTES % 11.3 % (2.0-8.0); NEUTROPHILS % 54.2 % (40.0-76.0); PLATELET 196 x1000/uL (130-400); RED BLOOD CELL COUNT 2.61 mill/uL (4.2-5.4)
[2019-03-01 08:00] VITALS: BP 159/60
[2019-03-01] MEDS: AMLODIPINE 10MG TABLET PO SCH (08:26)
[2019-03-01] MEDS: LISINOPRIL 40MG TABLET PO SCH (08:27)
[2019-03-01] MEDS: DOCUSATE SODIUM 250MG CAPSULE PO SCH (08:27)
[2019-03-01] MEDS: FOLIC ACID/VITAMIN B COMP W-C TABLET PO SCH (08:27)
[2019-03-01] MEDS: AMIODARONE HCL 200 MG TABLET PO SCH (08:27)
[2019-03-01] MEDS: SEVELAMER CARBONATE 800 MG TABLET PO SCH ×2 (08:28→18:28)
[2019-03-01] MEDS: APIXABAN 2.5 MG TABLET PO SCH ×2 (09:24→18:28)
[2019-03-01 09:33] LABS: BG CARBOXYHEMOGLOBIN 0.1 % (0.5-1.5); BG DEOXYHEMOGLOBIN 3.9 % (0.0-5.0); BG FRACTION INSPIRED OXYGEN 28; BG HCO3 ACT 28.2 mmol/L (22.0-26.0); BG METHEMOGLOBIN 0.2 % (0.0-1.5); BG OXYGEN SATURATION 96.1 % (92.0-98.5); BG OXYHEMOGLOBIN 95.8 % (94.0-97.0); BG PCO2 46.8 mmHg (35.0-45.0); BG PH 7.398 (7.350-7.450); BG PO2 82.5 mmHg (75.0-100.0); BG SAMPLE SITE RIGHT RADIAL; BG TOTAL HEMOGLOBIN 8.2 g/dL (12.0-18.0); BG VENT MODE NASAL CANNULA
[2019-03-01] MEDS: IPRATROPIUM/ALBUTEROL 0.5-3(2.5)MG/3ML NEB HHN SCH ×3 (11:49→20:18)
[2019-03-01 12:00] VITALS: BP 145/57
[2019-03-01 12:46] LABS: CLARITY URINE CLEAR (CLEAR); COLOR URINE YELLOW (YELLOW); KETONES URINE NEGATIVE (NEGATIVE); LEUKOCYTE ESTERASE URINE NEGATIVE (NEGATIVE); NITRITE URINE NEGATIVE (NEGATIVE); OCCULT BLOOD URINE NEGATIVE (NEGATIVE); PH URINE >=9.0 (4.5-8.0); PROTEIN URINE 2+ (NEGATIVE); SPECIFIC GRAVITY URINE 1.012 (1.005-1.030); UROBILINOGEN URINE 0.2 E.U./dL (0.2-1.0)
[2019-03-01 16:00] VITALS: BP 143/58
[2019-03-01 17:36] LABS: HEMATOCRIT 23.9 % (36.0-48.0); HEMOGLOBIN 8.2 g/dL (12.0-16.0)
[2019-03-01 20:17] VITALS: BP 154/55
[2019-03-02] VITALS (7 sets, daily range): BP systolic 106–177; BP diastolic 55–64
[2019-03-02] MEDS: SODIUM CHLORIDE 0.45% 1,000 ML IV SCH ×2 (00:04→23:43)
[2019-03-02] MEDS: IPRATROPIUM/ALBUTEROL 0.5-3(2.5)MG/3ML NEB HHN SCH ×6 (00:46→20:13)
[2019-03-02] MEDS: METOCLOPRAMIDE HCL 10MG/2ML VIAL IV SCH ×5 (05:46→23:43)
[2019-03-02] MEDS: HYDRALAZINE HCL 100MG TABLET PO SCH ×3 (05:46→22:19)
[2019-03-02] MEDS: CLONIDINE 0.2MG TABLET PO SCH ×3 (05:46→22:19)
[2019-03-02] MEDS: HYDROMORPHONE HCL/PF 2MG/ML CPJ IV PRN ×3 (05:47→20:13)
[2019-03-02] MEDS: ONDANSETRON HCL 4MG/2ML INJ IV PRN (06:50)
[2019-03-02] MEDS: LISINOPRIL 40MG TABLET PO SCH (09:00)
[2019-03-02] MEDS: SEVELAMER CARBONATE 800 MG TABLET PO SCH ×2 (09:06→17:17)
[2019-03-02] MEDS: DOCUSATE SODIUM 250MG CAPSULE PO SCH (09:06)
[2019-03-02] MEDS: FOLIC ACID/VITAMIN B COMP W-C TABLET PO SCH (09:06)
[2019-03-02] MEDS: AMLODIPINE 10MG TABLET PO SCH (09:07)
[2019-03-02] MEDS: APIXABAN 2.5 MG TABLET PO SCH ×2 (09:07→17:17)
[2019-03-02] MEDS: AMIODARONE HCL 200 MG TABLET PO SCH (09:07)
[2019-03-02 10:27] LABS: BASOPHILS % 0.6 % (0.0-2.0); EOSINOPHILS % 7.1 % (0.0-5.0); HEMATOCRIT. 23.8 % (36.0-48.0); HEMOGLOBIN. 8.1 g/dL (12.0-16.0); LYMPHOCYTES % 13.7 % (20.0-50.0); MEAN CORPUSCULAR HEMOGLOBIN 30.7 pg (28.0-32.0); MEAN CORPUSCULAR VOLUME 90.1 fL (81.0-99.0); MEAN PLATELET VOLUME 8.6 fl (7.4-10.4); MONOCYTES % 9.6 % (2.0-8.0); PLATELET 206 x1000/uL (130-400); RED BLOOD CELL COUNT 2.64 mill/uL (4.2-5.4); RED CELL DISTRIBUTION WIDTH 18.3 % (11.6-14.6)
[2019-03-02] MEDS ORDERED: LEVOFLOXACIN 250MG TABLET PO SCH (20:00)
[2019-03-02] MEDS: EPOETIN ALFA 10000UNITS/ML VIAL SUBCUT SCH (20:14)
[2019-03-02] MEDS: ACETAMINOPHEN 325MG TABLET PO PRN (22:23)
[2019-03-03] VITALS: BP 174/56
[2019-03-03] MEDS: IPRATROPIUM/ALBUTEROL 0.5-3(2.5)MG/3ML NEB HHN SCH ×6 (00:14→20:42)
[2019-03-03 04:00] VITALS: BP 160/59
[2019-03-03] MEDS: HYDRALAZINE HCL 100MG TABLET PO SCH ×3 (05:12→22:48)
[2019-03-03] MEDS: METOCLOPRAMIDE HCL 10MG/2ML VIAL IV SCH ×3 (05:13→16:55)
[2019-03-03] MEDS: CLONIDINE 0.2MG TABLET PO SCH ×3 (05:13→22:48)
[2019-03-03 08:25] VITALS: BP 105/63
[2019-03-03] MEDS: APIXABAN 2.5 MG TABLET PO SCH ×2 (08:28→16:54)
[2019-03-03] MEDS: SEVELAMER CARBONATE 800 MG TABLET PO SCH ×2 (08:28→16:54)
[2019-03-03] MEDS: DOCUSATE SODIUM 100MG CAPSULE PO PRN ×2 (08:28→16:54)
[2019-03-03] MEDS: AMIODARONE HCL 200 MG TABLET PO SCH (08:28)
[2019-03-03] MEDS: FOLIC ACID/VITAMIN B COMP W-C TABLET PO SCH (08:28)
[2019-03-03] MEDS: LISINOPRIL 40MG TABLET PO SCH (08:29)
[2019-03-03] MEDS: AMLODIPINE 10MG TABLET PO SCH (08:33)
[2019-03-03] MEDS: DOCUSATE SODIUM 250MG CAPSULE PO SCH (08:33)
[2019-03-03 12:34] VITALS: BP 163/58
[2019-03-03] MEDS: IPRATROPIUM/ALBUTEROL 0.5-3(2.5)MG/3ML NEB HHN PRN (13:27)
[2019-03-03] MEDS ORDERED: SORBITOL 70% SOLN 30ML PO NR (14:15)
[2019-03-03] MEDS: CLONIDINE 0.1MG TABLET PO PRN ×2 (14:21→14:22)
[2019-03-03 16:00] VITALS: BP 143/54
[2019-03-03 20:00] VITALS: BP 118/58
[2019-03-03 22:12] LABS: BG BASE EXCESS 4.4 mmol/L (-2.0-2.0); BG CARBOXYHEMOGLOBIN 0.1 % (0.5-1.5); BG DEOXYHEMOGLOBIN 12.6 % (0.0-5.0); BG FRACTION INSPIRED OXYGEN 21; BG HCO3 ACT 29.6 mmol/L (22.0-26.0); BG METHEMOGLOBIN 0.3 % (0.0-1.5); BG OXYGEN SATURATION 87.3 % (92.0-98.5); BG PCO2 47.3 mmHg (35.0-45.0); BG PH 7.414 (7.350-7.450); BG PO2 50.5 mmHg (75.0-100.0); BG SAMPLE SITE RIGHT RADIAL; BG VENT MODE ROOM AIR
[2019-03-04] VITALS: BP 129/50
[2019-03-04] MEDS: METOCLOPRAMIDE HCL 10MG/2ML VIAL IV SCH
[2019-03-04] MEDS: IPRATROPIUM/ALBUTEROL 0.5-3(2.5)MG/3ML NEB HHN SCH (00:43)
[2019-03-04 04:00] VITALS: BP 161/50
== END 2019-03-04 07:40 | disposition expired | DRG 247 ==
LOC: ER 07:11 → 6WST 11:22 → ENRESERV 21:11
PROVIDERS: ADMIT Internal Medicine Nephrology; ATTEND Internal Medicine Nephrology
PROC: 5A1D70Z Performance of Urinary Filtration, Intermittent, Less than 6 Hours Per Day (ICD-10-PCS; 2019-02-28)
PROC: 5A1D70Z Performance of Urinary Filtration, Intermittent, Less than 6 Hours Per Day (ICD-10-PCS; 2019-03-02)
PROC: 0BH17EZ Insertion of Endotracheal Airway into Trachea, Via Natural or Artificial Opening (ICD-10-PCS; principal; 2019-03-04)
PROC: 5A12012 Performance of Cardiac Output, Single, Manual (ICD-10-PCS; 2019-03-04)
PROC: 5A1D70Z Performance of Urinary Filtration, Intermittent, Less than 6 Hours Per Day (ICD-10-PCS; 2019-03-04)
DX: K56.41 Fecal impaction (principal); J90 Pleural effusion, not elsewhere classified; I12.0 Hypertensive chronic kidney disease with stage 5 chronic kidney disease or end stage renal disease; I48.0 Paroxysmal atrial fibrillation; I49.5 Sick sinus syndrome; N12 Tubulo-interstitial nephritis, not specified as acute or chronic; I46.9 Cardiac arrest, cause unspecified; N18.6 End stage renal disease; D63.1 Anemia in chronic kidney disease; B19.20 Unspecified viral hepatitis C without hepatic coma; I25.10 Atherosclerotic heart disease of native coronary artery without angina pectoris; M10.9 Gout, unspecified; R60.1 Generalized edema; R53.81 Other malaise; Z79.899 Other long term (current) drug therapy; Z95.0 Presence of cardiac pacemaker; Z79.01 Long term (current) use of anticoagulants; Z82.49 Family history of ischemic heart disease and other diseases of the circulatory system; Z99.2 Dependence on renal dialysis
CPT/HCPCS: 36415; 36600; 71045; 74176; 78582; 80048; 80061; 82270; 82375; 82805; 82962; 83540; 83550; 84484; 85014; 85018; 93005; 93306; 93970; 94640; 96365; 96375; 97110; 97162; 97166; 97530; 99285; A9558; J0696; J0885; J1170; J1956; J2405; J2765; J7620